=== PATIENT | male | born 1965 | race African-American/Black ===

== ENCOUNTER 2016-10-01 17:45 | Inpatient (IN) | payer MEDICARE ==
[2016-10-01] VITALS (8 sets, daily range): BP systolic 144–173; BP diastolic 82–93
[~2016-10-01] VITALS: Ht 180.3 cm; Wt 80.9 kg
[~2016-10-01 17:45] MED LIST: ATAZ300C PO; CAL667C PO; CLO01T PO; DOLU1TAB PO; DOLU50TA PO; FENO54TA4 PO; HYDR-2652 PO; HYDR2TAB27 PO; LOSA100T27 PO; MELA3TAB27 PO; METO-158 PO; NIFE90TA30 PO; TEMA15CA91 PO
[2016-10-01 18:50] LABS: Basophils # (auto) 0 uL; Basophils % (auto) 0.2 % (0.0-2.0); DEFINITIVE VIEW TRANSMISSION; Eosinophils # (auto) 0.1 uL; Eosinophils % (auto) 0.9 % (0.0-7.0); Hematocrit 21.5 % (41.0-53.0); Hemoglobin 7.1 g/dL (13.5-17.5); Lymphocytes # (auto) 0.9 uL; Mean Corpuscular Hemoglobin 30.6 pg (28.0-32.0); Mean Corpuscular Hgb Conc. 33.2 g/dL (32.0-36.0); Mean Corpuscular Volume 92.3 fL (80.0-100.0); Monocytes # (auto) 0.6 uL; Monocytes % (auto) 8.4 % (0.0-12.0); Neutrophils # (auto) 5.2 uL; Neutrophils % (auto) 77.5 % (37.0-80.0); Platelet Count (auto) 303 10^3/uL (140-450); Red Cell Distribution Width 18.8 % (11.6-16.0); White Blood Cell 6.7 10^3/uL (4.4-10.8)
[2016-10-01] MEDS ORDERED: LEVOFLOXACIN 500MG 100 ML IV ONE (19:00)
[2016-10-01] MEDS ORDERED: LABETALOL HCL 5 MG/ML 4ML SYRINGE IV ONE (19:00)
[2016-10-01] MEDS ORDERED: FUROSEMIDE 100 MG/10ML VIAL IV ONE (19:00)
[2016-10-01 19:13] LABS: Albumin 3.4 g/dL (3.4-5.0); BUN/Creatinine Ratio 6.6; Bilirubin, Total 0.6 mg/dL (0.2-1.0); Calcium 8.8 mg/dL (8.5-10.1); Potassium 3.2 mmol/L (3.5-5.1); Total Protein 7.2 g/dL (6.4-8.2)
[2016-10-01] MEDS ORDERED: ONDANSETRON HCL 4 MG/2 ML VIAL IV PRN (19:15)
[2016-10-01] MEDS ORDERED: cloNIDine HCL 0.1 MG TAB PO PRN (19:15)
[2016-10-01] MEDS ORDERED: MORPHINE SULF INJ 2 MG/ML SYRINGE 1ML IV PRN (19:15)
[2016-10-01] MEDS ORDERED: DOCUSATE SOD 100 MG CAP PO PRN (19:15)
[2016-10-01] MEDS ORDERED: NITROGLYCERIN 50MG/250ML 250 ML IV ONE (19:30)
[2016-10-01] MEDS ORDERED: LORazepam 2MG/ML-1ML VIAL IV ONE (20:15)
[2016-10-01] MEDS: METOPROLOL TARTRATE 50 MG TAB PO SCH (22:06)
[2016-10-01] MEDS: MORPHINE SULF INJ 2 MG/ML SYRINGE 1ML IV PRN (22:06)
[2016-10-01] MEDS: TEMAZEPAM 15 MG CAP PO PRN (23:03)
[2016-10-02] VITALS (91 sets, daily range): BP systolic 119–187; BP diastolic 47–116
[2016-10-02] MEDS: HYDROmorphone HCL 2 MG TAB PO PRN ×3 (00:22→16:24)
[2016-10-02] MEDS ORDERED: NITROGLYCERIN 50MG/250ML 250 ML IV ONE (01:40)
[2016-10-02] MEDS: NITROGLYCERIN 50MG/250ML 250 ML IV SCH ×3 (02:00→11:03)
[2016-10-02 03:55] LABS: Basophils # (auto) 0 uL; Basophils % (auto) 0.5 % (0.0-2.0); DEFINITIVE VIEW TRANSMISSION; Eosinophils # (auto) 0 uL; Eosinophils % (auto) 0.8 % (0.0-7.0); Hematocrit 18.6 % (41.0-53.0); Lymphocytes # (auto) 0.7 uL; Mean Corpuscular Hemoglobin 30.8 pg (28.0-32.0); Mean Corpuscular Volume 93.4 fL (80.0-100.0); Mean Platelet Volume 5.9 fL (7.4-10.4); Monocytes # (auto) 0.5 uL; Monocytes % (auto) 9.5 % (0.0-12.0); Neutrophils # (auto) 4.3 uL; Neutrophils % (auto) 76.2 % (37.0-80.0); Platelet Count (auto) 277 10^3/uL (140-450); White Blood Cell 5.6 10^3/uL (4.4-10.8)
[2016-10-02 04:17] LABS: Albumin 3.1 g/dL (3.4-5.0); Calcium 8.5 mg/dL (8.5-10.1); Potassium 3.6 mmol/L (3.5-5.1)
[2016-10-02 04:18] LABS: BUN/Creatinine Ratio 6.3
[2016-10-02 04:22] LABS: Bilirubin, Total 0.4 mg/dL (0.2-1.0); Hemoglobin 6.2 g/dL (13.5-17.5); Total Protein 6.4 g/dL (6.4-8.2)
[2016-10-02] MEDS: LOSARTAN POTASSIUM 50 MG TAB PO SCH (08:21)
[2016-10-02] MEDS: CALCIUM ACETATE 667 MG CAP PO SCH ×3 (08:22→18:05)
[2016-10-02] MEDS: ISOSORBIDE DINITRATE 10 MG TAB PO SCH ×3 (08:22→18:05)
[2016-10-02] MEDS: METOPROLOL TARTRATE 50 MG TAB PO SCH ×2 (10:04→22:01)
[2016-10-02] MEDS: LABETALOL HCL 5 MG/ML 4ML SYRINGE IV PRN (10:04)
[2016-10-02] MEDS ORDERED: NIFEdipine ER 30 MG TAB PO ONE (12:15)
[2016-10-02] MEDS ORDERED: PATIENTS OWN MEDICATION PO SCH ×2 (22:00)
[2016-10-02] MEDS: TERAZOSIN HCL 5 MG CAP PO SCH (22:01)
[2016-10-02] MEDS: ATAZANAVIR 200 MG PO SCH (22:02)
[2016-10-02] MEDS ORDERED: DOXA1TAB28 PO (22:11)
[2016-10-03] VITALS (32 sets, daily range): BP systolic 111–162; BP diastolic 52–102
[2016-10-03] MEDS: IPRATROPIUM BROM 0.5 MG/2.5ML INH SOL NEB SCH ×5 (01:18→23:49)
[2016-10-03] MEDS: ALBUTEROL SULF 2.5 MG/0.5ML(0.5%) NEB SOLN NEB PRN ×2 (01:18→18:49)
[2016-10-03] MEDS ORDERED: EPOETIN ALFA 10,000 UNIT/1 ML VIAL IV ONE (04:00)
[2016-10-03] MEDS ORDERED: SODIUM CHL 0.9% 1000 ML BAG XX ONE (04:00)
[2016-10-03] MEDS: ISOSORBIDE DINITRATE 10 MG TAB PO SCH ×3 (06:00→18:12)
[2016-10-03] MEDS: CALCIUM ACETATE 667 MG CAP PO SCH ×3 (08:16→18:11)
[2016-10-03] MEDS: HYDROmorphone HCL 2 MG TAB PO PRN ×2 (08:56→16:26)
[2016-10-03] MEDS ORDERED: PATIENTS OWN MEDICATION PO SCH ×4 (10:00)
[2016-10-03] MEDS: METOPROLOL TARTRATE 50 MG TAB PO SCH ×2 (11:26→21:35)
[2016-10-03] MEDS: LOSARTAN POTASSIUM 50 MG TAB PO SCH (11:27)
[2016-10-03] MEDS: ATAZANAVIR 200 MG PO SCH ×2 (12:13→21:34)
[2016-10-03] MEDS: DOLUTEGRAVIR 50 MG PO SCH (12:13)
[2016-10-03] MEDS: LAMIVUDINE 10 MG/ML PO SCH (12:14)
[2016-10-03] MEDS ORDERED: cloNIDine 0.2 mg/24hr 7DAY PATCH TD ONE (13:30)
[2016-10-03] MEDS ORDERED: cloNIDine 0.2 mg/24hr 7DAY PATCH TD SCH (13:30)
[2016-10-03] MEDS: TERAZOSIN HCL 5 MG CAP PO SCH (21:34)
[2016-10-03] MEDS: TEMAZEPAM 15 MG CAP PO PRN (22:05)
[2016-10-03] MEDS: LABETALOL HCL 5 MG/ML 4ML SYRINGE IV PRN (23:34)
[2016-10-04] MEDS: HYDROmorphone HCL 2 MG TAB PO PRN ×4 (00:58→18:11)
[2016-10-04] MEDS: LABETALOL HCL 5 MG/ML 4ML SYRINGE IV PRN ×3 (03:03→23:21)
[2016-10-04] MEDS: hydrALAZINE HCL 25 MG TAB PO PRN (04:34)
[2016-10-04] MEDS: NITROGLYCERIN 0.4 MG SL TAB SL PRN ×2 (05:23→05:31)
[2016-10-04] MEDS: ISOSORBIDE DINITRATE 10 MG TAB PO SCH ×3 (05:43→18:12)
[2016-10-04] MEDS: ALBUTEROL SULF 2.5 MG/0.5ML(0.5%) NEB SOLN NEB PRN ×3 (05:58→19:30)
[2016-10-04] MEDS: IPRATROPIUM BROM 0.5 MG/2.5ML INH SOL NEB SCH ×3 (05:58→19:30)
[2016-10-04] MEDS: DOLUTEGRAVIR 50 MG PO SCH (08:17)
[2016-10-04] MEDS: ATAZANAVIR 200 MG PO SCH ×2 (08:17→21:41)
[2016-10-04] MEDS: CALCIUM ACETATE 667 MG CAP PO SCH ×3 (08:17→18:13)
[2016-10-04] MEDS: LOSARTAN POTASSIUM 50 MG TAB PO SCH (08:18)
[2016-10-04] MEDS: LAMIVUDINE 10 MG/ML PO SCH (08:18)
[2016-10-04] MEDS: METOPROLOL TARTRATE 50 MG TAB PO SCH ×2 (08:19→21:42)
[2016-10-04 09:00] VITALS: BP 163/95
[2016-10-04] MEDS ORDERED: ADENOSINE 61 MG in GIVE UN-DILUTED 0 ML IV ONE (09:00)
[2016-10-04 13:00] VITALS: BP 159/98
[2016-10-04] MEDS ORDERED: ALBUTEROL SULF 2.5 MG/0.5ML(0.5%) NEB SOLN ONE (13:18)
[2016-10-04] MEDS ORDERED: IPRATROPIUM BROM 0.5 MG/2.5ML INH SOL ONE (13:18)
[2016-10-04 15:30] VITALS: BP 186/105
[2016-10-04] MEDS: MORPHINE SULF INJ 2 MG/ML SYRINGE 1ML IV PRN ×2 (16:38→20:57)
[2016-10-04] MEDS: TERAZOSIN HCL 5 MG CAP PO SCH (21:41)
[2016-10-04] MEDS: TEMAZEPAM 15 MG CAP PO PRN (21:42)
[2016-10-04 22:00] VITALS: BP 187/79
[2016-10-05] MEDS: LABETALOL HCL 5 MG/ML 4ML SYRINGE IV PRN ×3 (02:58→16:16)
[2016-10-05] MEDS: ISOSORBIDE DINITRATE 10 MG TAB PO SCH ×2 (05:59→12:12)
[2016-10-05 06:00] VITALS: BP 194/108
[2016-10-05 06:41] LABS: Basophils # (auto) 0 uL; Basophils % (auto) 0.6 % (0.0-2.0); DEFINITIVE VIEW TRANSMISSION; Eosinophils # (auto) 0 uL; Eosinophils % (auto) 0.6 % (0.0-7.0); Hematocrit 24.4 % (41.0-53.0); Hemoglobin 8.3 g/dL (13.5-17.5); Lymphocytes # (auto) 0.8 uL; Lymphocytes % (auto) 13.3 % (10.0-50.0); Mean Corpuscular Hemoglobin 30.9 pg (28.0-32.0); Mean Corpuscular Volume 90.9 fL (80.0-100.0); Mean Platelet Volume 6.3 fL (7.4-10.4); Monocytes # (auto) 0.5 uL; Monocytes % (auto) 7.3 % (0.0-12.0); Neutrophils # (auto) 4.9 uL; Neutrophils % (auto) 78.2 % (37.0-80.0); Platelet Count (auto) 289 10^3/uL (140-450); Red Cell Distribution Width 18.5 % (11.6-16.0); White Blood Cell 6.2 10^3/uL (4.4-10.8)
[2016-10-05] MEDS: IPRATROPIUM BROM 0.5 MG/2.5ML INH SOL NEB SCH ×3 (07:01→11:57)
[2016-10-05] MEDS: ALBUTEROL SULF 2.5 MG/0.5ML(0.5%) NEB SOLN NEB PRN ×2 (07:01→11:57)
[2016-10-05] MEDS: MORPHINE SULF INJ 2 MG/ML SYRINGE 1ML IV PRN (07:06)
[2016-10-05 09:00] VITALS: BP 171/89
[2016-10-05] MEDS: METOPROLOL TARTRATE 50 MG TAB PO SCH (09:18)
[2016-10-05] MEDS: CALCIUM ACETATE 667 MG CAP PO SCH ×2 (09:18→11:53)
[2016-10-05] MEDS: LOSARTAN POTASSIUM 50 MG TAB PO SCH (09:19)
[2016-10-05] MEDS: ATAZANAVIR 200 MG PO SCH (09:21)
[2016-10-05] MEDS: LAMIVUDINE 10 MG/ML PO SCH (09:22)
[2016-10-05] MEDS: DOLUTEGRAVIR 50 MG PO SCH (09:22)
[2016-10-05] MEDS: HYDROmorphone HCL 2 MG TAB PO PRN (09:38)
[2016-10-05] MEDS: hydrALAZINE HCL 25 MG TAB PO PRN (09:40)
[2016-10-05 13:00] VITALS: BP 166/106
[2016-10-05] MEDS ORDERED: EPOETIN ALFA 4,000 UNIT/ML VL IV ONE (13:30)
[2016-10-05] MEDS ORDERED: HEPARIN SODIUM (PORCINE) 5000 UNITS/ML 1ML VIAL IV ONE (13:30)
[2016-10-05] MEDS ORDERED: EPOETIN ALFA 10,000 UNIT/1 ML VIAL IV ONE (14:00)
[2016-10-05 15:29] VITALS: BP 166/106
[2016-10-07] MEDS ORDERED: DOXA1TAB28 PO (10:47)
[2016-10-07] MEDS ORDERED: TEMA30CA PO (10:47)
[2016-10-07] MEDS ORDERED: FERR325T PO (10:54)
[2016-10-07] MEDS ORDERED: PRENTAB76 PO (10:56)
[2016-10-07] MEDS ORDERED: CYA100I PO (10:58)
[2016-10-07] MEDS ORDERED: FOLI1TAB6 PO (10:59)
[2016-10-07] MEDS ORDERED: HYDR-2651 PO (11:02)
[2016-10-07] MEDS ORDERED: DOLU50TA PO (11:06)
== END 2016-10-05 17:10 | disposition home health service (06) | DRG 280 ==
LOC: ER 17:45 → EDBD 17:45 → TELE 17:46 → ICU WEST 23:06 → TELE-EAST 10-03 15:03
PROVIDERS: ADMIT Internal Medicine; ATTEND Internal Medicine
PROC: 30233N1 Transfusion of Nonautologous Red Blood Cells into Peripheral Vein, Percutaneous Approach (ICD-10-PCS; principal; 2016-10-03)
DX: I21.4 Non-ST elevation (NSTEMI) myocardial infarction (principal); I50.33 Acute on chronic diastolic (congestive) heart failure; J96.00 Acute respiratory failure, unspecified whether with hypoxia or hypercapnia; N18.6 End stage renal disease; N17.9 Acute kidney failure, unspecified; I13.2 Hypertensive heart and chronic kidney disease with heart failure and with stage 5 chronic kidney disease, or end stage renal disease; I16.1 Hypertensive emergency; J81.1 Chronic pulmonary edema; D63.1 Anemia in chronic kidney disease; F17.290 Nicotine dependence, other tobacco product, uncomplicated; I27.2 Other secondary pulmonary hypertension; R56.9 Unspecified convulsions; E87.70 Fluid overload, unspecified; I35.0 Nonrheumatic aortic (valve) stenosis; Z99.2 Dependence on renal dialysis; Z82.0 Family history of epilepsy and other diseases of the nervous system; Z90.2 Acquired absence of lung [part of]; Z79.899 Other long term (current) drug therapy
CPT/HCPCS: 36415; 71010; 78452; 80053; 83605; 84484; 85025; 86850; 86900; 86901; 86920; 87040; 87081; 93005; 93017; 94640; 96365; 96366; 96375; 99291; J0153; J0885; J1642; J1956; J3490

== ENCOUNTER 2016-10-15 01:34 | Inpatient (IN) | payer MEDICARE ==
[~2016-10-15] VITALS: Ht 175.3 cm; Wt 65.8 kg
[2016-10-15] VITALS (57 sets, daily range): BP systolic 116–270; BP diastolic 60–137
[~2016-10-15 01:34] MED LIST changes: +CYA100I PO; +DOXA1TAB28 PO; +FERR325T PO; +FOLI1TAB6 PO; +HYDR-2651 PO; +PRENTAB76 PO; +TEMA30CA PO
[2016-10-15] MEDS ORDERED: ETOMIDATE (2MG/ML) 20ML VIAL IV ONE ×2 (01:38→07:15)
[2016-10-15] MEDS ORDERED: SUCCINYLCHOLINE CHLORIDE 20 MG/ML 10ML VIAL IV ONE ×2 (01:38→07:15)
[2016-10-15] MEDS ORDERED: PROPOFOL 100 ML IV ONE ×2 (01:53→02:59)
[2016-10-15] MEDS ORDERED: ONDANSETRON HCL 4 MG/2 ML VIAL IV PRN (02:45)
[2016-10-15] MEDS ORDERED: NITROGLYCERIN 0.4 MG SL TAB SL PRN (02:45)
[2016-10-15] MEDS ORDERED: DOCUSATE SOD 100 MG CAP PO PRN (02:45)
[2016-10-15] MEDS ORDERED: MORPHINE SULF INJ 2 MG/ML SYRINGE 1ML IV PRN (02:45)
[2016-10-15] MEDS ORDERED: ACETAMINOPHEN 325 MG TAB PO PRN (02:45)
[2016-10-15] MEDS ORDERED: NOREPINEPHRINE BITARTRATE 250 ML IV PRN (03:00)
[2016-10-15 03:04] LABS: Basophils # (auto) 0 uL; Basophils % (auto) 0.4 % (0.0-2.0); DEFINITIVE VIEW TRANSMISSION; Eosinophils # (auto) 0.1 uL; Eosinophils % (auto) 0.6 % (0.0-7.0); Hematocrit 26.2 % (41.0-53.0); Hemoglobin 8.4 g/dL (13.5-17.5); INR 1.18 (0.9-1.15); Lymphocytes # (auto) 1.3 uL; Lymphocytes % (auto) 11.9 % (10.0-50.0); Mean Corpuscular Hemoglobin 30.1 pg (28.0-32.0); Mean Corpuscular Hgb Conc. 32.3 g/dL (32.0-36.0); Mean Corpuscular Volume 93.3 fL (80.0-100.0); Mean Platelet Volume 6.2 fL (7.4-10.4); Monocytes # (auto) 0.6 uL; Monocytes % (auto) 5.4 % (0.0-12.0); Neutrophils # (auto) 8.8 uL; Neutrophils % (auto) 81.7 % (37.0-80.0); Partial Thromboplastin Time 26.4 sec (22.64-33.71); Platelet Count (auto) 389 10^3/uL (140-450); Prothrombin Time 12.7 sec (9.37-12.3); Red Cell Distribution Width 18.8 % (11.6-16.0); White Blood Cell 10.8 10^3/uL (4.4-10.8)
[2016-10-15 03:11] LABS: Albumin 3.7 g/dL (3.4-5.0); Calcium 9.2 mg/dL (8.5-10.1); Magnesium 2.2 mg/dL (1.6-2.6); Potassium 4.8 mmol/L (3.5-5.1)
[2016-10-15 03:13] LABS: Lactic Acid w/Reflex 4.3 mmol/L (0.4-2.0)
[2016-10-15 03:17] LABS: REFLEX LACTIC ACID YES OR NO YES
[2016-10-15 03:19] LABS: Bilirubin, Total 0.8 mg/dL (0.2-1.0); Total Protein 7.8 g/dL (6.4-8.2)
[2016-10-15 03:23] LABS: Temperature: 21.8 C (20.0-25.0)
[2016-10-15] MEDS ORDERED: MIDAZOLAM DRIP 100 mg/100mL NS 100 ML IV ONE (04:03)
[2016-10-15 04:39] LABS: Urine Bilirubin Negative (Negative); Urine Blood Negative /uL (Negative); Urine Color Yellow (Yellow); Urine Glucose TRACE mg/dL (Normal); Urine Ketone Negative (Negative); Urine Nitrite Negative (Negative); Urine RBC 1 /hpf (0 - 3); Urine Sperm PRESENT /hpf (None Seen); Urine Squamous Epithelial Cell FEW /hpf (<5); Urine Urobilinogen Normal (Negative)
[2016-10-15] MEDS ORDERED: VANCOMYCIN 1GM/250ML D5W 250 ML IV ONE (05:15)
[2016-10-15] MEDS ORDERED: PIPERACILLIN-TAZOB 2.25GM 50 ML IV ONE (05:15)
[2016-10-15] MEDS: PROPOFOL 100 ML IV SCH ×2 (07:23→22:25)
[2016-10-15] MEDS: MIDAZOLAM DRIP 100 mg/100mL NS 100 ML IV SCH (07:24)
[2016-10-15] MEDS ORDERED: cloNIDine HCL 0.1 MG TAB PO PRN (10:30)
[2016-10-15] MEDS: METOPROLOL TARTRATE 50 MG TAB PO SCH ×2 (11:00→22:00)
[2016-10-15] MEDS: LOSARTAN POTASSIUM 50 MG TAB PO SCH (11:00)
[2016-10-15] MEDS: NIFEdipine ER 30 MG TAB PO SCH (13:00)
[2016-10-15] MEDS: ENOXAPARIN SOD 30 MG/0.3 ML SYRINGE SC SCH (13:00)
[2016-10-15] MEDS: FOLIC ACID 1 MG TAB PO SCH (13:00)
[2016-10-15] MEDS: FERROUS SULFATE 325 MG TAB PO SCH ×2 (13:00→18:00)
[2016-10-15] MEDS ORDERED: hydrALAZINE HCL 25 MG TAB PO SCH (14:00)
[2016-10-15] MEDS ORDERED: PATIENTS OWN MEDICATION (Hydralazine Hcl 1 TAB) PO SCH ×2 (14:00)
[2016-10-15] MEDS: hydrALAZINE HCL 25 MG TAB PO SCH ×2 (14:00→22:26)
[2016-10-15] MEDS ORDERED: PATIENTS OWN MEDICATION (Ferrous Sulfate 325 MG) PO SCH ×2 (18:00)
[2016-10-15] MEDS: Melatonin 5 MG TABLET PO SCH (22:00)
[2016-10-15] MEDS: ATAZANAVIR 200 MG PO SCH (22:00)
[2016-10-15] MEDS: DOXAZOSIN MESYL 2 MG TAB PO SCH (22:29)
[2016-10-16] VITALS (74 sets, daily range): BP systolic 106–208; BP diastolic 62–110
[2016-10-16] MEDS: PROPOFOL 100 ML IV SCH (07:20)
[2016-10-16] MEDS: FERROUS SULFATE 325 MG TAB PO SCH ×2 (08:00→18:00)
[2016-10-16] MEDS ORDERED: EPOETIN ALFA 10,000 UNIT/1 ML VIAL IV ONE (09:15)
[2016-10-16] MEDS: MIDAZOLAM DRIP 100 mg/100mL NS 100 ML IV SCH (09:15)
[2016-10-16] MEDS ORDERED: SODIUM CHL 0.9% 1000 ML BAG XX ONE (09:15)
[2016-10-16 09:33] LABS: Basophils # (auto) 0 uL; Basophils % (auto) 0.8 % (0.0-2.0); DEFINITIVE VIEW TRANSMISSION; Eosinophils # (auto) 0.1 uL; Eosinophils % (auto) 1.4 % (0.0-7.0); Hematocrit 24.1 % (41.0-53.0); Hemoglobin 7.9 g/dL (13.5-17.5); Lymphocytes # (auto) 0.5 uL; Mean Corpuscular Hgb Conc. 32.5 g/dL (32.0-36.0); Mean Corpuscular Volume 92.2 fL (80.0-100.0); Mean Platelet Volume 6.2 fL (7.4-10.4); Monocytes # (auto) 0.3 uL; Monocytes % (auto) 5.2 % (0.0-12.0); Neutrophils # (auto) 4.9 uL; Neutrophils % (auto) 83.6 % (37.0-80.0); Platelet Count (auto) 309 10^3/uL (140-450); Red Cell Distribution Width 18.1 % (11.6-16.0); White Blood Cell 5.9 10^3/uL (4.4-10.8)
[2016-10-16] MEDS ORDERED: PRENATAL PO SCH (10:00)
[2016-10-16] MEDS ORDERED: PATIENTS OWN MEDICATION (Folic Acid 1 MG) PO SCH ×2 (10:00)
[2016-10-16] MEDS ORDERED: PATIENTS OWN MEDICATION (Nifedipine (Nifedipine Er) 1 TAB) PO SCH ×2 (10:00)
[2016-10-16] MEDS ORDERED: [UNRECOGNIZED DRUG - OTHER] PO SCH (10:00)
[2016-10-16] MEDS ORDERED: PATIENTS OWN MEDICATION (Losartan Potassium 100 MG) PO SCH (10:00)
[2016-10-16] MEDS: FOLIC ACID 1 MG TAB PO SCH (10:00)
[2016-10-16] MEDS ORDERED: CALCIUM CARBONATE PO SCH (10:00)
[2016-10-16] MEDS: PRENATAL VITAMIN TAB PO SCH (10:00)
[2016-10-16] MEDS: METOPROLOL TARTRATE 50 MG TAB PO SCH ×2 (10:00→22:22)
[2016-10-16 10:05] LABS: BUN/Creatinine Ratio 8.1; Calcium 9.1 mg/dL (8.5-10.1)
[2016-10-16 10:09] LABS: Potassium 5.9 mmol/L (3.5-5.1)
[2016-10-16] MEDS: hydrALAZINE HCL 25 MG TAB PO SCH ×3 (13:33→22:22)
[2016-10-16] MEDS: LOSARTAN POTASSIUM 50 MG TAB PO SCH (13:35)
[2016-10-16] MEDS: ATAZANAVIR 200 MG PO SCH ×2 (15:00→22:21)
[2016-10-16] MEDS: ENOXAPARIN SOD 30 MG/0.3 ML SYRINGE SC SCH (15:00)
[2016-10-16] MEDS: NIFEdipine ER 30 MG TAB PO SCH (15:00)
[2016-10-16] MEDS: Melatonin 5 MG TABLET PO SCH (22:00)
[2016-10-16] MEDS: DOXAZOSIN MESYL 2 MG TAB PO SCH (22:22)
[2016-10-16 22:58] LABS: Allen Test Yes; Base Excess -0.4 mmol/L (-2.0-2.0); Blood 02Sat 96.6 % (96-100); Blood COHb 0.6 % (<2.0); Blood MetHb 0.2 % (0.0-1.5); Blood O2Hb 95.8 % (95.0-100.0); HCO3 23.1 mmol/L (22-26.0); MODE VENT - A/C; PCO2 33.3 mmHg (35.0-45.0); PO2 102.8 mmHg (65.0-85.0); Sample Type Arterial; pH 7.459 (7.350-7.450)
[2016-10-17] VITALS (100 sets, daily range): BP systolic 112–193; BP diastolic 57–106
[2016-10-17] MEDS: hydrALAZINE HCL 25 MG TAB PO SCH ×3 (06:00→23:06)
[2016-10-17 06:17] LABS: Basophils # (auto) 0 uL; Basophils % (auto) 0.6 % (0.0-2.0); DEFINITIVE VIEW TRANSMISSION; Eosinophils # (auto) 0.1 uL; Eosinophils % (auto) 2.6 % (0.0-7.0); Hematocrit 22.8 % (41.0-53.0); Hemoglobin 7.6 g/dL (13.5-17.5); Lymphocytes # (auto) 0.8 uL; Lymphocytes % (auto) 17.1 % (10.0-50.0); Mean Corpuscular Hemoglobin 30.4 pg (28.0-32.0); Mean Corpuscular Hgb Conc. 33.2 g/dL (32.0-36.0); Mean Corpuscular Volume 91.7 fL (80.0-100.0); Mean Platelet Volume 6.1 fL (7.4-10.4); Monocytes # (auto) 0.4 uL; Monocytes % (auto) 8.1 % (0.0-12.0); Neutrophils # (auto) 3.4 uL; Neutrophils % (auto) 71.6 % (37.0-80.0); Platelet Count (auto) 336 10^3/uL (140-450); Red Cell Distribution Width 17.5 % (11.6-16.0); White Blood Cell 4.7 10^3/uL (4.4-10.8)
[2016-10-17 06:52] LABS: Albumin 2.9 g/dL (3.4-5.0); BUN/Creatinine Ratio 6.9; Bilirubin, Total 0.4 mg/dL (0.2-1.0); Potassium 4.3 mmol/L (3.5-5.1); Total Protein 6.5 g/dL (6.4-8.2)
[2016-10-17 07:40] LABS: Allen Test Modified; Blood 02Sat 97.2 % (96-100); Blood AaDO2 55.8 mmHg (<26.0); Blood COHb 0.5 % (<2.0); Blood MetHb 0.2 % (0.0-1.5); Blood O2Hb 96.5 % (95.0-100.0); HCO3 28.1 mmol/L (22-26.0); MODE VENT - A/C; PCO2 39.8 mmHg (35.0-45.0); PIP 23; PO2 111.3 mmHg (65.0-85.0); Sample Type Arterial; pH 7.466 (7.350-7.450)
[2016-10-17] MEDS: fentaNYL Drip 2500mCg/250mlNS 250 ML IV SCH (08:30)
[2016-10-17] MEDS: cefTRIAXone 1GM/50ML D5W 50 ML IV SCH (08:37)
[2016-10-17] MEDS: MIDAZOLAM DRIP 100 mg/100mL NS 100 ML IV SCH ×2 (09:15→16:27)
[2016-10-17] MEDS: NIFEdipine ER 30 MG TAB PO SCH (10:00)
[2016-10-17] MEDS: METOPROLOL TARTRATE 50 MG TAB PO SCH ×2 (10:00→23:06)
[2016-10-17] MEDS: LOSARTAN POTASSIUM 50 MG TAB PO SCH (10:00)
[2016-10-17] MEDS: ENOXAPARIN SOD 30 MG/0.3 ML SYRINGE SC SCH (10:00)
[2016-10-17] MEDS: PRENATAL VITAMIN TAB PO SCH (10:23)
[2016-10-17] MEDS: FOLIC ACID 1 MG TAB PO SCH (10:23)
[2016-10-17] MEDS: ATAZANAVIR 200 MG PO SCH ×2 (10:26→23:06)
[2016-10-17] MEDS ORDERED: FERROUS SULFATE 300 MG/5 ML ORAL LIQ PO SCH (18:00)
[2016-10-17] MEDS ORDERED: MIDAZOLAM HCL 1MG/1ML-2 ML VIAL IV PRN (19:00)
[2016-10-17 21:11] LABS: Body Fluid Polymorphonuclear 34 %
[2016-10-17 23:02] LABS: Allen Test Yes; Base Excess 3.8 mmol/L (-2.0-2.0); Blood 02Sat 95.5 % (96-100); Blood AaDO2 66.2 mmHg (<26.0); Blood COHb 0.3 % (0.5-1.5); Blood MetHb 0.3 % (0.0-1.5); Blood O2Hb 94.9 % (95.0-100.0); HCO3 28.9 mmol/L (22-26.0); MODE VENT - CPAP; PCO2 46.4 mmHg (35.0-45.0); PO2 93.2 mmHg (65.0-85.0); Pressure Support 10; Sample Type Arterial; pH 7.412 (7.350-7.450)
[2016-10-17] MEDS: Melatonin 5 MG TABLET PO SCH (23:06)
[2016-10-17] MEDS: DOXAZOSIN MESYL 2 MG TAB PO SCH (23:06)
[2016-10-18] VITALS (18 sets, daily range): BP systolic 126–194; BP diastolic 73–108
[2016-10-18 03:45] LABS: Basophils # (auto) 0 uL; Basophils % (auto) 0.5 % (0.0-2.0); DEFINITIVE VIEW TRANSMISSION; Eosinophils # (auto) 0.1 uL; Eosinophils % (auto) 0.9 % (0.0-7.0); Hematocrit 24.5 % (41.0-53.0); Hemoglobin 7.9 g/dL (13.5-17.5); Lymphocytes # (auto) 0.6 uL; Mean Corpuscular Hemoglobin 29.8 pg (28.0-32.0); Mean Corpuscular Hgb Conc. 32.4 g/dL (32.0-36.0); Mean Corpuscular Volume 92.1 fL (80.0-100.0); Mean Platelet Volume 6.1 fL (7.4-10.4); Monocytes # (auto) 0.4 uL; Monocytes % (auto) 5.5 % (0.0-12.0); Neutrophils % (auto) 85.1 % (37.0-80.0); Platelet Count (auto) 360 10^3/uL (140-450); Red Cell Distribution Width 17.3 % (11.6-16.0); White Blood Cell 7.1 10^3/uL (4.4-10.8)
[2016-10-18 04:04] LABS: Potassium 4.7 mmol/L (3.5-5.1)
[2016-10-18 04:15] LABS: Albumin 3.3 g/dL (3.4-5.0); BUN/Creatinine Ratio 6.7; Bilirubin, Total 0.6 mg/dL (0.2-1.0); Calcium 8.8 mg/dL (8.5-10.1)
[2016-10-18 04:41] LABS: Allen Test Yes; Base Excess 1.7 mmol/L (-2.0-2.0); Blood 02Sat 91.5 % (96-100); Blood AaDO2 123.1 mmHg (<26.0); Blood COHb 0.4 % (0.5-1.5); Blood MetHb 0.3 % (0.0-1.5); Blood O2Hb 90.9 % (95.0-100.0); HCO3 27.2 mmol/L (22-26.0); MODE MASK - AEROSOL; PCO2 46.8 mmHg (35.0-45.0); Sample Type Arterial; pH 7.382 (7.350-7.450)
[2016-10-18] MEDS: hydrALAZINE HCL 25 MG TAB PO SCH ×3 (06:00→22:25)
[2016-10-18] MEDS ORDERED: SODIUM CHL 0.9% 1000 ML BAG XX ONE (06:15)
[2016-10-18] MEDS ORDERED: ALBUTEROL SULF 2.5 MG/0.5ML(0.5%) NEB SOLN NEB PRN (06:15)
[2016-10-18] MEDS ORDERED: EPOETIN ALFA 2,000 UNIT/1 ML VIAL IV ONE (06:15)
[2016-10-18] MEDS: hydrALAZINE HCL 20 MG/ML VL IV PRN ×2 (06:53→14:16)
[2016-10-18] MEDS: PROPOFOL 100 ML IV SCH (07:11)
[2016-10-18] MEDS: fentaNYL Drip 2500mCg/250mlNS 250 ML IV SCH (07:27)
[2016-10-18] MEDS ORDERED: EPOETIN ALFA 10,000 UNIT/1 ML VIAL IV ONE (07:30)
[2016-10-18] MEDS: ENOXAPARIN SOD 30 MG/0.3 ML SYRINGE SC SCH (10:00)
[2016-10-18] MEDS: cefTRIAXone 1GM/50ML D5W 50 ML IV SCH (11:07)
[2016-10-18] MEDS: METOPROLOL TARTRATE 50 MG TAB PO SCH ×2 (11:08→22:25)
[2016-10-18] MEDS: FOLIC ACID 1 MG TAB PO SCH (11:08)
[2016-10-18] MEDS: NIFEdipine ER 30 MG TAB PO SCH (11:09)
[2016-10-18] MEDS: LOSARTAN POTASSIUM 50 MG TAB PO SCH (11:10)
[2016-10-18] MEDS: ATAZANAVIR 200 MG PO SCH ×2 (11:12→22:28)
[2016-10-18] MEDS ORDERED: FERROUS SULFATE 325 MG TAB PO ONE (11:15)
[2016-10-18] MEDS: IPRATROPIUM BROM 0.5 MG/2.5ML INH SOL NEB SCH ×2 (12:23→19:12)
[2016-10-18] MEDS: ALBUTEROL SULF 2.5 MG/0.5ML(0.5%) NEB SOLN NEB SCH ×2 (12:23→19:12)
[2016-10-18] MEDS: PRENATAL VITAMIN TAB PO SCH (12:51)
[2016-10-18] MEDS: cloNIDine HCL 0.1 MG TAB PO SCH ×2 (14:23→22:24)
[2016-10-18] MEDS: Melatonin 5 MG TABLET PO SCH (22:00)
[2016-10-18] MEDS: DOXAZOSIN MESYL 2 MG TAB PO SCH (22:23)
[2016-10-18] MEDS: FERROUS SULFATE 325 MG TAB PO SCH (22:24)
[2016-10-19] MEDS: cloNIDine HCL 0.1 MG TAB PO SCH ×2 (05:29→14:00)
[2016-10-19] MEDS: hydrALAZINE HCL 25 MG TAB PO SCH ×2 (05:29→14:00)
[2016-10-19 05:33] VITALS: BP 150/82
[2016-10-19 06:07] LABS: Basophils # (auto) 0 uL; Basophils % (auto) 0.2 % (0.0-2.0); Eosinophils # (auto) 0 uL; Eosinophils % (auto) 0.5 % (0.0-7.0); Hematocrit 27.7 % (41.0-53.0); Lymphocytes # (auto) 0.6 uL; Mean Corpuscular Hgb Conc. 32.4 g/dL (32.0-36.0); Mean Corpuscular Volume 92.8 fL (80.0-100.0); Mean Platelet Volume 6.3 fL (7.4-10.4); Monocytes # (auto) 0.5 uL; Monocytes % (auto) 6.4 % (0.0-12.0); Neutrophils % (auto) 84.9 % (37.0-80.0); Platelet Count (auto) 375 10^3/uL (140-450); Red Cell Distribution Width 17.5 % (11.6-16.0); White Blood Cell 7.1 10^3/uL (4.4-10.8)
[2016-10-19 06:09] LABS: Potassium 4.5 mmol/L (3.5-5.1)
[2016-10-19 06:18] LABS: Albumin 3.1 g/dL (3.4-5.0); BUN/Creatinine Ratio 5.3; Calcium 9.1 mg/dL (8.5-10.1)
[2016-10-19 06:20] LABS: Bilirubin, Total 0.5 mg/dL (0.2-1.0); Total Protein 7.3 g/dL (6.4-8.2)
[2016-10-19] MEDS: IPRATROPIUM BROM 0.5 MG/2.5ML INH SOL NEB SCH ×2 (07:15→11:53)
[2016-10-19] MEDS: ALBUTEROL SULF 2.5 MG/0.5ML(0.5%) NEB SOLN NEB SCH ×2 (07:15→11:53)
[2016-10-19 07:59] VITALS: BP 151/81
[2016-10-19] MEDS: cefTRIAXone 1GM/50ML D5W 50 ML IV SCH (09:28)
[2016-10-19] MEDS: ATAZANAVIR 200 MG PO SCH (10:00)
[2016-10-19] MEDS: FERROUS SULFATE 325 MG TAB PO SCH (10:50)
[2016-10-19] MEDS: NIFEdipine ER 30 MG TAB PO SCH (10:52)
[2016-10-19] MEDS: LOSARTAN POTASSIUM 50 MG TAB PO SCH (10:52)
[2016-10-19] MEDS: METOPROLOL TARTRATE 50 MG TAB PO SCH (10:52)
[2016-10-19] MEDS: PRENATAL VITAMIN TAB PO SCH (10:52)
[2016-10-19] MEDS: FOLIC ACID 1 MG TAB PO SCH (10:53)
[2016-10-19] MEDS: ENOXAPARIN SOD 30 MG/0.3 ML SYRINGE SC SCH (10:53)
[2016-10-19 12:22] VITALS: BP 155/89
== END 2016-10-19 16:03 | disposition home health service (06) | DRG 208 ==
LOC: EDBD 01:34 → ER 01:35 → TELE 01:36 → ICU WEST 09:15 → TELE-EAST 10-18 21:52
PROVIDERS: ADMIT Internal Medicine; ATTEND Internal Medicine
PROC: 5A1945Z Respiratory Ventilation, 24-96 Consecutive Hours (ICD-10-PCS; principal; 2016-10-15)
PROC: 0BH17EZ Insertion of Endotracheal Airway into Trachea, Via Natural or Artificial Opening (ICD-10-PCS; 2016-10-15)
PROC: 5A1D60Z (ICD-10-PCS; 2016-10-16)
PROC: 02HV33Z Insertion of Infusion Device into Superior Vena Cava, Percutaneous Approach (ICD-10-PCS; 2016-10-16)
PROC: 0W993ZZ Drainage of Right Pleural Cavity, Percutaneous Approach (ICD-10-PCS; 2016-10-17)
DX: J96.01 Acute respiratory failure with hypoxia (principal); J69.0 Pneumonitis due to inhalation of food and vomit; I50.33 Acute on chronic diastolic (congestive) heart failure; N18.6 End stage renal disease; I13.2 Hypertensive heart and chronic kidney disease with heart failure and with stage 5 chronic kidney disease, or end stage renal disease; J44.9 Chronic obstructive pulmonary disease, unspecified; I25.10 Atherosclerotic heart disease of native coronary artery without angina pectoris; F17.290 Nicotine dependence, other tobacco product, uncomplicated; I27.2 Other secondary pulmonary hypertension; D63.1 Anemia in chronic kidney disease; Z99.2 Dependence on renal dialysis; Z82.0 Family history of epilepsy and other diseases of the nervous system; Z91.19 Patient's noncompliance with other medical treatment and regimen
CPT/HCPCS: 31500; 36415; 36556; 36600; 51702; 70450; 71010; 74176; 76604; 76942; 80048; 80053; 81001; 82805; 82962; 83605; 83735; 83880; 83986; 84484; 85025; 85610; 85730; 86301; 87040; 87070; 87081; 87205; 89051; 90935; 93005; 94002; 94003; 94640; 96365; 96368; 97001; 99291; J0330; J0696; J0885; J1642; J2405; J2543; J2704; J3010; Q4081

== ENCOUNTER 2016-10-29 05:32 | Inpatient (IN) | payer MEDICARE ==
[~2016-10-29] VITALS: Ht 175.3 cm; Wt 67.1 kg
[2016-10-29] VITALS (51 sets, daily range): BP systolic 133–187; BP diastolic 74–93
[2016-10-29] MEDS ORDERED: SUCCINYLCHOLINE CHLORIDE 20 MG/ML 10ML VIAL IV ONE ×2 (05:34→06:00)
[2016-10-29] MEDS ORDERED: FUROSEMIDE INJECTION 20 ML ONE (05:35)
[2016-10-29] MEDS ORDERED: ETOMIDATE (2MG/ML) 20ML VIAL IV ONE ×2 (05:35→06:00)
[2016-10-29] MEDS ORDERED: PROPOFOL 100 ML IV ONE (05:47)
[2016-10-29 05:55] LABS: Basophils # (auto) 0 uL; Basophils % (auto) 0.4 % (0.0-2.0); DEFINITIVE VIEW TRANSMISSION; Eosinophils # (auto) 0.1 uL; Eosinophils % (auto) 1.1 % (0.0-7.0); Hematocrit 25.1 % (41.0-53.0); Hemoglobin 8.2 g/dL (13.5-17.5); Lymphocytes # (auto) 1.4 uL; Mean Corpuscular Hemoglobin 30.7 pg (28.0-32.0); Mean Corpuscular Hgb Conc. 32.6 g/dL (32.0-36.0); Mean Platelet Volume 6.3 fL (7.4-10.4); Monocytes # (auto) 0.7 uL; Monocytes % (auto) 7.6 % (0.0-12.0); Neutrophils # (auto) 7.6 uL; Neutrophils % (auto) 76.9 % (37.0-80.0); Platelet Count (auto) 385 10^3/uL (140-450); SUSPECT VIEW TRANSMISSION; White Blood Cell 9.9 10^3/uL (4.4-10.8)
[2016-10-29 06:11] LABS: INR 1.15 (0.9-1.15); Partial Thromboplastin Time 27.2 sec (22.64-33.71)
[2016-10-29 06:12] LABS: Prothrombin Time 12.4 sec (9.37-12.3)
[2016-10-29 06:18] LABS: Albumin 3.8 g/dL (3.4-5.0); Calcium 8.7 mg/dL (8.5-10.1); Potassium 4.8 mmol/L (3.5-5.1)
[2016-10-29 06:26] LABS: BUN/Creatinine Ratio 8.3; Bilirubin, Total 0.5 mg/dL (0.2-1.0); Total Protein 7.9 g/dL (6.4-8.2)
[2016-10-29] MEDS ORDERED: FUROSEMIDE 100 MG/10ML VIAL IV ONE (06:45)
[2016-10-29 06:55] LABS: Temperature: 20.1 C (20.0-25.0)
[2016-10-29] MEDS: PROPOFOL 100 ML IV SCH ×3 (07:10→18:43)
[2016-10-29] MEDS ORDERED: ACETAMINOPHEN 325 MG TAB PO PRN (09:15)
[2016-10-29] MEDS ORDERED: ONDANSETRON HCL 4 MG/2 ML VIAL IV PRN (09:15)
[2016-10-29] MEDS ORDERED: HYDROcodone-ACET 5/325MG TAB PO PRN (09:15)
[2016-10-29] MEDS ORDERED: MORPHINE SULF INJ 2 MG/ML SYRINGE 1ML IV PRN (09:15)
[2016-10-29] MEDS ORDERED: NITROGLYCERIN 0.4 MG SL TAB SL PRN (09:15)
[2016-10-29] MEDS ORDERED: DOCUSATE SOD 100 MG CAP PO PRN (09:15)
[2016-10-29] MEDS ORDERED: MIDAZOLAM DRIP 100 mg/100mL NS 100 ML IV ONE (10:15)
[2016-10-29] MEDS: ENOXAPARIN SOD 30 MG/0.3 ML SYRINGE SC SCH (10:33)
[2016-10-29] MEDS: MIDAZOLAM DRIP 100 mg/100mL NS 100 ML IV SCH (10:34)
[2016-10-29] MEDS: hydrALAZINE HCL 20 MG/ML VL IV PRN (11:18)
[2016-10-29] MEDS: CALCIUM ACETATE 667 MG CAP PO SCH ×2 (12:00→17:39)
[2016-10-29] MEDS: METOPROLOL TARTRATE 50 MG TAB PO SCH ×2 (12:19→22:54)
[2016-10-29] MEDS: hydrALAZINE HCL 25 MG TAB PO SCH ×2 (14:14→22:54)
[2016-10-29] MEDS ORDERED: EPOETIN ALFA 10,000 UNIT/1 ML VIAL IV ONE (20:00)
[2016-10-29] MEDS ORDERED: SODIUM CHL 0.9% 1000 ML BAG XX ONE (20:00)
[2016-10-30] VITALS (68 sets, daily range): BP systolic 158–207; BP diastolic 69–109
[2016-10-30] MEDS: hydrALAZINE HCL 20 MG/ML VL IV PRN ×4 (00:49→23:32)
[2016-10-30] MEDS: cloNIDine HCL 0.1 MG TAB PO PRN ×2 (01:12→12:12)
[2016-10-30 04:25] LABS: Potassium 3.8 mmol/L (3.5-5.1)
[2016-10-30 04:31] LABS: Albumin 3.3 g/dL (3.4-5.0); Calcium 8.6 mg/dL (8.5-10.1)
[2016-10-30 04:34] LABS: Basophils # (auto) 0 uL; Basophils % (auto) 0.5 % (0.0-2.0); Bilirubin, Total 0.4 mg/dL (0.2-1.0); DEFINITIVE VIEW TRANSMISSION; Eosinophils # (auto) 0.1 uL; Hematocrit 23.9 % (41.0-53.0); Hemoglobin 7.9 g/dL (13.5-17.5); Lymphocytes # (auto) 0.8 uL; Lymphocytes % (auto) 11.5 % (10.0-50.0); Mean Corpuscular Hemoglobin 30.5 pg (28.0-32.0); Mean Corpuscular Hgb Conc. 33.2 g/dL (32.0-36.0); Mean Corpuscular Volume 91.8 fL (80.0-100.0); Mean Platelet Volume 6.2 fL (7.4-10.4); Monocytes # (auto) 0.6 uL; Monocytes % (auto) 8.8 % (0.0-12.0); Neutrophils # (auto) 5.5 uL; Neutrophils % (auto) 78.2 % (37.0-80.0); Platelet Count (auto) 385 10^3/uL (140-450); Red Cell Distribution Width 17.1 % (11.6-16.0)
[2016-10-30] MEDS: MORPHINE SULF INJ 2 MG/ML SYRINGE 1ML IV PRN ×4 (05:37→20:31)
[2016-10-30] MEDS: hydrALAZINE HCL 25 MG TAB PO SCH ×3 (05:54→21:27)
[2016-10-30] MEDS: CALCIUM ACETATE 667 MG CAP PO SCH ×3 (07:50→18:00)
[2016-10-30] MEDS: ENOXAPARIN SOD 30 MG/0.3 ML SYRINGE SC SCH (08:03)
[2016-10-30] MEDS: MIDAZOLAM DRIP 100 mg/100mL NS 100 ML IV SCH (08:03)
[2016-10-30] MEDS: METOPROLOL TARTRATE 50 MG TAB PO SCH ×2 (12:11→21:27)
[2016-10-30] MEDS ORDERED: hydrALAZINE HCL 25 MG TAB PO ONE (14:15)
[2016-10-30] MEDS ORDERED: cloNIDine 0.3 mg/24hr 7DAY PATCH TD SCH (17:00)
[2016-10-30] MEDS ORDERED: SODIUM CHL 0.9% 1000 ML BAG XX ONE (17:00)
[2016-10-30] MEDS ORDERED: EPOETIN ALFA 10,000 UNIT/1 ML VIAL IV ONE (17:00)
[2016-10-30] MEDS ORDERED: ISOSORBIDE DINITRATE 10 MG TAB PO SCH (19:45)
[2016-10-30] MEDS: amLODIPine BESYLATE 5 MG TAB PO SCH (19:52)
[2016-10-30] MEDS ORDERED: hydrALAZINE HCL 25 MG TAB PO SCH (22:00)
[2016-10-30 23:00] LABS: Potassium 4.1 mmol/L (3.5-5.1)
[2016-10-30 23:03] LABS: Magnesium 2.1 mg/dL (1.6-2.6)
[2016-10-31] VITALS (62 sets, daily range): BP systolic 134–187; BP diastolic 49–94
[2016-10-31] MEDS: MORPHINE SULF INJ 2 MG/ML SYRINGE 1ML IV PRN ×4 (00:41→19:58)
[2016-10-31] MEDS ORDERED: ISOSORBIDE DINITRATE 10 MG TAB NG ONE (04:15)
[2016-10-31] MEDS: hydrALAZINE HCL 25 MG TAB PO SCH ×3 (05:29→23:06)
[2016-10-31] MEDS: PROPOFOL 100 ML IV SCH (06:37)
[2016-10-31] MEDS: CALCIUM ACETATE 667 MG CAP PO SCH ×3 (08:00→18:26)
[2016-10-31] MEDS: METOPROLOL TARTRATE 50 MG TAB PO SCH ×2 (09:39→23:08)
[2016-10-31] MEDS: ISOSORBIDE DINITRATE 10 MG TAB PO SCH ×2 (09:40→23:07)
[2016-10-31] MEDS: amLODIPine BESYLATE 5 MG TAB PO SCH (09:40)
[2016-10-31] MEDS: PANTOPRAZOLE SODIUM 40 MG/10 ML VIAL IV SCH (09:41)
[2016-10-31] MEDS: ENOXAPARIN SOD 30 MG/0.3 ML SYRINGE SC SCH (09:41)
[2016-10-31] MEDS: MIDAZOLAM DRIP 100 mg/100mL NS 100 ML IV SCH (10:15)
[2016-10-31] MEDS: hydrALAZINE HCL 20 MG/ML VL IV PRN (19:58)
[2016-11-01] MEDS: hydrALAZINE HCL 20 MG/ML VL IV PRN (04:44)
[2016-11-01] MEDS: MORPHINE SULF INJ 2 MG/ML SYRINGE 1ML IV PRN ×4 (04:44→21:01)
[2016-11-01 05:30] VITALS: BP 157/88
[2016-11-01 06:05] LABS: Basophils # (auto) 0 uL; Basophils % (auto) 0.5 % (0.0-2.0); Eosinophils # (auto) 0.1 uL; Eosinophils % (auto) 1.2 % (0.0-7.0); Hematocrit 27.3 % (41.0-53.0); Lymphocytes % (auto) 12.6 % (10.0-50.0); Mean Corpuscular Hemoglobin 30.3 pg (28.0-32.0); Mean Corpuscular Volume 91.8 fL (80.0-100.0); Monocytes # (auto) 0.7 uL; Monocytes % (auto) 9.6 % (0.0-12.0); Neutrophils # (auto) 5.9 uL; Neutrophils % (auto) 76.1 % (37.0-80.0); Platelet Count (auto) 401 10^3/uL (140-450); Red Cell Distribution Width 17.5 % (11.6-16.0); White Blood Cell 7.7 10^3/uL (4.4-10.8)
[2016-11-01] MEDS: hydrALAZINE HCL 25 MG TAB PO SCH ×3 (06:11→21:56)
[2016-11-01 06:25] LABS: Potassium 3.8 mmol/L (3.5-5.1)
[2016-11-01 06:33] LABS: Albumin 3.4 g/dL (3.4-5.0); BUN/Creatinine Ratio 5.7; Calcium 9.1 mg/dL (8.5-10.1)
[2016-11-01 06:35] LABS: Bilirubin, Total 0.4 mg/dL (0.2-1.0); Total Protein 7.2 g/dL (6.4-8.2)
[2016-11-01 09:00] VITALS: BP 171/84
[2016-11-01] MEDS: PANTOPRAZOLE SODIUM 40 MG/10 ML VIAL IV SCH (09:39)
[2016-11-01] MEDS: ISOSORBIDE DINITRATE 10 MG TAB PO SCH ×2 (09:40→21:57)
[2016-11-01] MEDS: amLODIPine BESYLATE 5 MG TAB PO SCH (09:41)
[2016-11-01] MEDS: ENOXAPARIN SOD 30 MG/0.3 ML SYRINGE SC SCH (09:42)
[2016-11-01] MEDS: METOPROLOL TARTRATE 50 MG TAB PO SCH ×2 (09:42→21:57)
[2016-11-01] MEDS ORDERED: cloNIDine 0.2 mg/24hr 7DAY PATCH TD SCH (10:00)
[2016-11-01] MEDS: CALCIUM ACETATE 667 MG CAP PO SCH ×3 (10:27→18:11)
[2016-11-01 17:00] VITALS: BP 153/91
[2016-11-01] MEDS: BUMETANIDE 1 MG TAB PO SCH (18:11)
[2016-11-01 21:38] VITALS: BP 156/85
[2016-11-01] MEDS: Novasource Renal 8 Ounces PO SCH (21:58)
[2016-11-02] MEDS: MORPHINE SULF INJ 2 MG/ML SYRINGE 1ML IV PRN ×3 (03:29→14:13)
[2016-11-02 04:52] VITALS: BP 164/79
[2016-11-02] MEDS: hydrALAZINE HCL 25 MG TAB PO SCH ×2 (05:51→14:13)
[2016-11-02] MEDS: Novasource Renal 8 Ounces PO SCH ×2 (05:52→14:16)
[2016-11-02] MEDS: BUMETANIDE 1 MG TAB PO SCH (05:52)
[2016-11-02] MEDS: CALCIUM ACETATE 667 MG CAP PO SCH ×2 (08:27→12:22)
[2016-11-02 09:00] VITALS: BP_SYST 124; BP_SYST 152; BP_DIAS 77
[2016-11-02] MEDS: ENOXAPARIN SOD 30 MG/0.3 ML SYRINGE SC SCH (09:49)
[2016-11-02] MEDS: ISOSORBIDE DINITRATE 10 MG TAB PO SCH (09:50)
[2016-11-02] MEDS: PANTOPRAZOLE SODIUM 40 MG/10 ML VIAL IV SCH (09:51)
[2016-11-02] MEDS: METOPROLOL TARTRATE 50 MG TAB PO SCH (09:51)
[2016-11-02] MEDS ORDERED: NIFEdipine ER 30 MG TAB PO SCH (10:00)
[2016-11-02] MEDS ORDERED: EPOETIN ALFA 10,000 UNIT/1 ML VIAL IV ONE (12:00)
[2016-11-02] MEDS ORDERED: SODIUM CHL 0.9% 1000 ML BAG XX ONE (12:00)
[2016-11-02 13:00] VITALS: BP 171/92
[2016-11-02 17:00] VITALS: BP 175/83
[2016-11-02 17:24] VITALS: BP 152/77
== END 2016-11-02 18:30 | disposition home health service (06) | DRG 208 ==
LOC: EDBD 05:32 → ER 05:33 → TELE 05:34 → ICU WEST 11:05 → TELE-WESTW 10-31 21:00
PROVIDERS: ADMIT Internal Medicine; ATTEND Internal Medicine
PROC: 5A1935Z Respiratory Ventilation, Less than 24 Consecutive Hours (ICD-10-PCS; principal; 2016-10-29)
PROC: 0BH17EZ Insertion of Endotracheal Airway into Trachea, Via Natural or Artificial Opening (ICD-10-PCS; 2016-10-29)
PROC: 5A1D60Z (ICD-10-PCS; 2016-10-29)
PROC: 30233N1 Transfusion of Nonautologous Red Blood Cells into Peripheral Vein, Percutaneous Approach (ICD-10-PCS; 2016-10-29)
DX: J96.01 Acute respiratory failure with hypoxia (principal); N18.6 End stage renal disease; I50.43 Acute on chronic combined systolic (congestive) and diastolic (congestive) heart failure; I13.2 Hypertensive heart and chronic kidney disease with heart failure and with stage 5 chronic kidney disease, or end stage renal disease; K92.2 Gastrointestinal hemorrhage, unspecified; D62 Acute posthemorrhagic anemia; D64.9 Anemia, unspecified; I27.2 Other secondary pulmonary hypertension; J44.9 Chronic obstructive pulmonary disease, unspecified; I25.10 Atherosclerotic heart disease of native coronary artery without angina pectoris; D63.1 Anemia in chronic kidney disease; F17.290 Nicotine dependence, other tobacco product, uncomplicated; Z79.899 Other long term (current) drug therapy; Z82.0 Family history of epilepsy and other diseases of the nervous system; Z91.19 Patient's noncompliance with other medical treatment and regimen; Z99.2 Dependence on renal dialysis; Z91.15 Patient's noncompliance with renal dialysis
CPT/HCPCS: 31500; 36415; 36600; 71010; 71020; 74176; 80053; 82805; 83690; 83735; 83880; 84132; 84484; 85025; 85379; 85610; 85730; 86850; 86900; 86901; 86920; 87070; 87081; 87205; 90935; 93005; 94002; 96374; 96375; 99291; A4565; C9113; J0330; J0885; J1642; J2405; J2704

== ENCOUNTER 2017-05-13 18:41 | Emergency (ER) | payer MEDICARE, MEDICAID ==
[~2017-05-13] VITALS: Ht 180.3 cm; Wt 68.0 kg
[~2017-05-13 18:41] MED LIST changes: -CAL667C PO; +CALC667C5 PO; -DOLU1TAB PO; -HYDR-2651 PO; -HYDR-2652 PO; +HYDR25TA35 PO; -HYDR2TAB27 PO; +HYDR2TAB29 PO
[2017-05-13 18:56] VITALS: BP 124/83
[2017-05-13 19:23] LABS: Basophils # (auto) 0 uL; Basophils % (auto) 0.5 % (0.0-2.0); Eosinophils # (auto) 0.1 uL; Eosinophils % (auto) 0.9 % (0.0-7.0); Hematocrit 32.2 % (41.0-53.0); Hemoglobin 10.8 g/dL (13.5-17.5); Lymphocytes # (auto) 0.8 uL; Lymphocytes % (auto) 10.6 % (10.0-50.0); Mean Corpuscular Hemoglobin 32.7 pg (28.0-32.0); Mean Corpuscular Hgb Conc. 33.6 g/dL (32.0-36.0); Mean Corpuscular Volume 97.4 fL (80.0-100.0); Mean Platelet Volume 5.9 fL (6.9-10.8); Monocytes # (auto) 0.6 uL; Monocytes % (auto) 8.5 % (0.0-12.0); Neutrophils # (auto) 5.9 uL; Neutrophils % (auto) 79.5 % (37.0-80.0); Platelet Count (auto) 285 10^3/uL (140-450); Red Cell Distribution Width 19.4 % (11.8-14.3); White Blood Cell 7.4 10^3/uL (4.4-10.8)
[2017-05-13 19:49] LABS: Albumin 3.8 g/dL (3.4-5.0); BUN/Creatinine Ratio 4.1; Bilirubin, Total 0.6 mg/dL (0.2-1.0); Calcium 9.7 mg/dL (8.5-10.1); Potassium 3.8 mmol/L (3.5-5.1); Total Protein 8.4 g/dL (6.4-8.2)
[2017-05-13 19:52] LABS: B-Type Natriuretic Peptide 183.73 pg/mL (0-100)
[2017-05-13 20:04] LABS: Temperature: 22.2 C (20.0-25.0)
== END 2017-05-13 20:49 | disposition left against medical advice (07) ==
LOC: EDBD 18:41 → ER 18:41
DX: R06.02 Shortness of breath (principal); Z53.21 Procedure and treatment not carried out due to patient leaving prior to being seen by health care provider
CPT/HCPCS: 36415; 71010; 80053; 83880; 84484; 85025

== ENCOUNTER 2017-07-12 19:45 | Emergency (ER) | payer MEDICARE, MEDICAID ==
[~2017-07-12] VITALS: Ht 177.8 cm; Wt 74.8 kg
[~2017-07-12 19:45] MED LIST changes: +FERR-20 PO; -FERR325T PO; -HYDR2TAB29 PO; +HYDR2TAB58 PO
[2017-07-12 19:55] VITALS: BP 104/66
[2017-07-12 20:43] LABS: Basophils # (auto) 0 uL; Basophils % (auto) 0.6 % (0.0-2.0); Eosinophils # (auto) 0.1 uL; Eosinophils % (auto) 0.7 % (0.0-7.0); Hematocrit 43.2 % (41.0-53.0); Hemoglobin 14.3 g/dL (13.5-17.5); Lymphocytes # (auto) 0.6 uL; Lymphocytes % (auto) 7.3 % (10.0-50.0); Mean Corpuscular Hemoglobin 33.6 pg (28.0-32.0); Mean Corpuscular Hgb Conc. 33.2 g/dL (32.0-36.0); Mean Corpuscular Volume 101.3 fL (80.0-100.0); Monocytes # (auto) 0.6 uL; Monocytes % (auto) 7.3 % (0.0-12.0); Neutrophils # (auto) 7.1 uL; Neutrophils % (auto) 84.1 % (37.0-80.0); Platelet Count (auto) 278 10^3/uL (140-450); Red Blood Cells 4.26 10^6/uL (4.5-5.90); Red Cell Distribution Width 17.2 % (11.8-14.3); White Blood Cell 8.4 10^3/uL (4.4-10.8)
[2017-07-12 20:59] LABS: Potassium 4.1 mmol/L (3.5-5.1)
[2017-07-12 21:02] LABS: BUN/Creatinine Ratio 4.7
[2017-07-12 21:09] LABS: Bilirubin, Total 0.3 mg/dL (0.2-1.0); Total Protein 9.1 g/dL (6.4-8.2)
== END 2017-07-12 21:47 | disposition left against medical advice (07) ==
LOC: EDBD 19:45 → ER 19:45
DX: R55 Syncope and collapse (principal); I95.9 Hypotension, unspecified; Z53.21 Procedure and treatment not carried out due to patient leaving prior to being seen by health care provider
CPT/HCPCS: 36415; 70450; 80053; 84484; 85025; 93005